=== PATIENT | female | born 1990 | race Two or more races ===

== ENCOUNTER 2021-02-08 14:01 | Emergency (ER) | payer OTHER ==
[~2021-02-08] VITALS: Ht 157.5 cm; Wt 48.5 kg
[2021-02-08] MEDS ORDERED: ALPRAZOLAM ODT2 MG (14:40)
[2021-02-08] MEDS ORDERED: BACTRIM DS TAB1 EACH PO (16:47)
[2021-02-08] MEDS ORDERED: PYRIDIUM100 MG PO (16:47)
== END 2021-02-08 16:52 | disposition home or self-care (01) ==
LOC: ER 14:01
DX: N39.0 Urinary tract infection, site not specified (principal)

== ENCOUNTER 2021-03-15 12:11 | Emergency (ER) | payer OTHER ==
[~2021-03-15] VITALS: Ht 157.5 cm; Wt 53.1 kg
[~2021-03-15 12:11] MED LIST: ALPRAZOLAM ODT2 MG; BACTRIM DS TAB1 EACH PO; PYRIDIUM100 MG PO
[2021-03-15] MEDS ORDERED: MACROBID 100 M100 MG PO (12:40)
[2021-03-15] MEDS ORDERED: INTESTINEX680 M1 PO (12:40)
[2021-03-15] MEDS ORDERED: PYRIDIUM DS200 MG PO (12:40)
== END 2021-03-15 13:01 | disposition home or self-care (01) ==
LOC: ER 12:11
DX: N39.0 Urinary tract infection, site not specified (principal); B96.29 Other Escherichia coli [E. coli] as the cause of diseases classified elsewhere